=== PATIENT | female | born 1965 | race Caucasian/White ===

== ENCOUNTER 2018-08-15 12:58 | Outpatient (CLI) | payer OTHER | END 2018-08-15 12:59 | disposition home or self-care (01) | LOC: C.CTH 12:58 | DX: R53.1 Weakness (principal) ==

== ENCOUNTER 2018-09-21 11:43 | Outpatient (CLI) | payer OTHER | END 2018-09-21 11:44 | disposition home or self-care (01) | LOC: C.LAB 11:43 | DX: M06.9 Rheumatoid arthritis, unspecified (principal); M32.10 Systemic lupus erythematosus, organ or system involvement unspecified; M35.00 Sjogren syndrome, unspecified ==